=== PATIENT | female | born 1950 | race Caucasian/White ===

== ENCOUNTER → 2017-07-04 | Outpatient (CLI) | payer MEDICARE, OTHER ==
[~2017-07-04] MED LIST: 8 HOUR650 MG PO; ALBUTEROL17 GM INH; AMBIEN10 MG PO; AMITRIPTYLINE H50 MG PO; ASPIRIN81 MG PO; ASPIRINEC PO; AUGMENTIN875 M1 PO; BACTRIM DS TABL1 TA1 PO; BACTROBAN22 GM TOP; CELEXA PO; CELEXA20 MG PO; CYCLOBENZAPRINE5 MG PO; DARVOCET-N 1001 TAB PO; DOXYCYCLINE HY100 M3 PO; FAMOTIDINE PO; FIORICET 50-301 EACH PO; FLONASE 0.05% N16 G1; FLONASE 0.05% N16 G1 NS; FOLIC ACID1 MG PO; GUAIFENESIN600 M2 PO; IRON SUPPLEMENT1 TAB PO; KEFLEX500 MG PO; LIPITOR PO; LORTAB 5/500 TA1 TA1 PO; MAXALT MLT5 MG/TAB PO; MAXALT5 MG PO; MAXIDE; MAXZIDE 37.5 M1 EACH PO; MAXZIDE PO; METRONIDAZOLE PO; NEURONTIN PO; NEURONTIN600 MG PO; NORCO1 TAB 10/3 PO; OCEAN45 ML NS; OMEPRAZOLE20 M2 PO; PREDNISONE PO; PREVACID; PRILOSEC20 MG PO; PROAIR HFA8.5 GM INH; RIZATRIPTAN10 M2 PO; SEROQUEL PO; SEROQUEL XR50 MG PO; SEROQUEL25 MG PO; SUMATRIPTAN SUC50 M1 PO; TOPAMAX50 MG PO; TRAZODONE HCL150 MG PO; TRIAMTERENE-HCT1 TA6 PO; TRIAMTERENE-HCT1 TA8 PO; TRIAMTERENE/HCT1 CA3 PO; VICODIN 5/500 T1 TAB PO; VOLTAREN75 MG PO; ZOLOFT50 MG PO; ZOMIG5 MG PO; ZYRTEC10 M2 PO
--- NOTE | ~2017-07-04 | CR150 ---
[facility] A Service of [facility] & [facility] RADIOLOGY TEXT RESULTS PATIENT: MONICA TREVINO LOCATION: [facility] : 52 UNIT #: [id number] AGE: [address]: Lisandro Hazel MD SEX: F ORDER DR: [id number] [facility] [address] [place], [place] [address] [id number] O MR#: [id number] Acc #: [id number] NAME: MONICA TREVINO : 1950 SEX: F STUDY DATE/TIME: 07/04/2017 15:07 UNIT: [facility] ROOM: STUDY DESCRIPTION: CR Hip Min 2 Views Lt Attending Physician: Lisandro Hazel M.D. Referring Physician: Lisandro Hazel M.D. Ordering Physician: Lisandro Hazel M.D. Primary Care Physician: Nupur Quinn A.P.R.N. MEDICAL IMAGING REPORT This report is preliminary unless electronic signature is present EXAM AP pelvis with frog view left hip 07/04/2017 HISTORY Left lateral hip pain and large raised nodule after falling at home [address] abdomen and pelvis 12/23/2016. FINDINGS No left hip fracture or hip dislocation is seen. Left hip joint space appears well preserved. ORIF changes of the proximal right femur. A triangular-shaped free bony fragment lies above the right greater trochanter, and it is unchanged in position since the 12/23/2016 CT abdomen and the right hip radiographs from [facility] Orthopedics dated 08/22/2016. No pelvic ring fracture is identified. Chain sutures are seen over the midline of the lower abdomen. IMPRESSION 1. No acute abnormality of the pelvis or left hip. 2. Right hip ORIF changes. Chronic bony fragment lies at the superior margin of the right greater trochanter, unchanged from 2014. Dictated by... Tierney Stover M.D. THIS IS AN ELECTRONICALLY VERIFIED REPORT Tierney Stover M.D. at 07/05/2017 2:21 PM [facility]/mjs [facility] A Service of [facility] RADIOLOGY TEXT RESULTS PATIENT: MONICA TREVINO LOCATION: [facility], INCT #: [id number] : 52 UNIT #: [id number] AGE: [address]: Lisandro Hazel MD SEX: F ORDER DR: TD: 07/05/2017 07:22 JOB #: [id number] MEDICAL IMAGING REPORT Page 1 of 1 COPY
== END | disposition home or self-care (01) ==
LOC: CRAD 14:37
DX: M25.551 Pain in right hip (principal); Z98.890 Other specified postprocedural states
CPT/HCPCS: 73502